=== PATIENT | male | born 1990 | race Caucasian/White ===

== ENCOUNTER 2020-11-18 14:49 | Emergency (ER) | payer OTHER ==
[2020-11-18] MEDS ORDERED: PREMIERPRO RX5 MG/GM OD (16:06)
[2020-11-18 16:37] VITALS: BP 128/80
== END 2020-11-18 16:20 | disposition home or self-care (01) ==
LOC: ED 14:49
DX: T15.91XA Foreign body on external eye, part unspecified, right eye, initial encounter (principal); F17.200 Nicotine dependence, unspecified, uncomplicated; W45.8XXA Other foreign body or object entering through skin, initial encounter

== ENCOUNTER → 2021-01-28 | Outpatient (REF) ==
[~2021-01-28] MED LIST: PREMIERPRO RX5 MG/GM OD
== END ==
LOC: LAB 14:01
DX: Z02.1 Encounter for pre-employment examination (principal)